=== PATIENT | female | born 1960 | race Caucasian/White ===

== ENCOUNTER 2019-01-23 12:59 | Emergency (ER) | payer BC, OTHER ==
[2019-01-23 13:46] VITALS: BP 148/85
--- NOTE | 2019-01-23 15:35 | UC ---
Hand/Wrist HPI - HPI Summary HPI Summary: 58 yo female fell at work c/o left wrist pain occurred this AM she is right handed declines analgesic here - History Of Current Complaint Chief Complaint: UCUpperExtremity Stated Complaint: ARM INJURY Time Seen by Provider: 01/23/19 14:50 Hx Obtained From: Patient Onset/Duration: Sudden Onset, Gradual Onset, Lasting Minutes Severity Initially: Severe Severity Currently: Severe Pain Intensity: 8 Pain Scale Used: 0-10 Numeric Character Of Pain: Aching Aggravating Factor(s): Movement Alleviating Factor(s): Rest Associated Signs And Symptoms: Positive: Swelling Related History: Occupational Injury, Dominant Hand Right Hands: 1 - tender and swollen - Allergies/Home Medications Allergies/Adverse Reactions: Allergies Allergy/AdvReac Type Severity Reaction Status Date / Time cefaclor [From Ceclor] Allergy Hives Verified 01/23/19 13:47 PMH/Surg Hx/FS Hx/Imm Hx Previously Healthy: Yes Endocrine History: Dyslipidemia Cardiovascular History: Hypertension - Surgical History Surgical History: Yes Surgery Procedure, Year, and Place: T&A. 2 c section. [place]. knee surgery. 2 lumpectomy- benign - Family History Known Family History: Positive: Hypertension - Social History Alcohol Use: None Substance Use Type: None Smoking Status (MU): Never Smoked Tobacco - Immunization History Most Recent Influenza Vaccination: 2012 Review of Systems All Other Systems Reviewed And Are Negative: Yes Constitutional: Positive: Negative Skin: Positive: Negative Eyes: Positive: Negative ENT: Positive: Negative Respiratory: Positive: Negative Cardiovascular: Positive: Negative Gastrointestinal: Positive: Negative Genitourinary: Positive: Negative Motor: Positive: Negative Neurovascular: Positive: Negative Musculoskeletal: Positive: Arthralgia - left wrist Neurological: Positive: Negative Psychological: Positive: Negative Physical Exam Triage Information Reviewed: Yes Appearance: Well-Appearing, No Pain Distress, Well-Nourished Vital Signs: Initial Vital Signs Temp 99 F 01/23/19 13:41 Pulse 100 01/23/19 13:41 Resp 20 01/23/19 13:41 BP 148/85 01/23/19 13:41 Pulse Ox 100 01/23/19 13:41 Vital Signs Reviewed: Yes Eyes: Positive: Conjunctiva Clear ENT: Positive: Hearing grossly normal, Uvula midline. Negative: Nasal congestion, Nasal drainage, Tonsillar swelling, Tonsillar exudate, Hoarse voice Neck: Positive: Supple, Nontender, No Lymphadenopathy Respiratory: Positive: Lungs clear, Normal breath sounds, No respiratory distress, No accessory muscle use Cardiovascular: Positive: RRR, No Murmur, Pulses Normal Abdomen Description: Positive: Nontender, No Organomegaly Bowel Sounds: Positive: Present Musculoskeletal: Positive: Strength Intact, ROM Intact Neurological: Positive: Alert Psychological Exam: Normal Skin Exam: Normal Diagnostics - Radiology No standard instances Radiology Interpretation Completed By: Radiologist Summary of Radiographic Findings: left wrist:. Subtle radial margin cortical contour and trabecular irregularity at the radial styloid is suspicious for a subtle impaction fracture given the clinical context. No suggestion of additional fracture. #. Normal articular alignment. #. 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 #. Diffuse soft tissue swelling Hand/Wrist Course/Dx - Differential Dx/Diagnosis Provider Diagnosis: Nondisplaced fracture of distal end of left radius Discharge ED - Sign-Out/Discharge Documenting (check all that apply): Patient Departure All imaging exams completed and their final reports reviewed: Yes - Discharge Plan Condition: Stable Disposition: HOME Patient Education Materials: Wrist Fracture in Adults (ED) Referrals: Nj Roa MD [Medical Doctor] - As Soon As Possible Additional Instructions: splint elevate ice advil or aleve - Billing Disposition and Condition Condition: STABLE Disposition: Home
== END 2019-01-23 16:03 | disposition home or self-care (01) ==
LOC: UCEAST 12:59
DX: S52.502A Unspecified fracture of the lower end of left radius, initial encounter for closed fracture (principal); W18.30XA Fall on same level, unspecified, initial encounter; Y92.89 Other specified places as the place of occurrence of the external cause; E78.5 Hyperlipidemia, unspecified; I10 Essential (primary) hypertension
CPT/HCPCS: 99202; G0463

== ENCOUNTER 2019-12-14 12:08 | Inpatient (IN) ==
[2019-12-14 14:00] LABS: Hematocrit 45 % (35-47); Hemoglobin 15.6 g/dL (12.0-16.0); Mean Corpuscular HGB Conc 34 g/dL (31-36); Mean Corpuscular Hemoglobin 31 pg (27-31); Mean Corpuscular Volume 89 fL (80-97); Mean Platelet Volume 10.6 fL (7.4-10.4); Platelet Count 239 10^3/uL (150-450); Red Blood Count 5.07 10^6 /uL (3.70-4.87); Red Cell Distribution Width 14 % (10-15); White Blood Count 7.5 10^3/uL (3.5-10.8)
[2019-12-14 14:02] LABS: Urine Appearance Clear; Urine Bilirubin Negative (Negative); Urine Blood Negative (Negative); Urine Color Straw; Urine Glucose Negative (Negative); Urine Ketones Negative (Negative); Urine Nitrite Negative (Negative); Urine Protein Negative (Negative); Urine Specific Gravity 1.006 (1.010-1.030); Urine Urobilinogen Negative (Negative)
[2019-12-14] MEDS ORDERED: cefTRIAXone 1 gm/50 mL NS BAG 1 GM/50 ML BAG IV ONE (14:13)
[2019-12-14] MEDS ORDERED: Azithromycin 500 mg/250 ml NS 500 MG/250 ML BAG IVPB ONE (14:13)
[2019-12-14 14:16] LABS: Albumin 3.8 g/dL (3.2-5.2); Albumin/Globulin Ratio 1.1 (1-3); BUN/Creatinine Ratio 28.4 (8-20); Calcium 9.5 mg/dL (8.6-10.3); EGFR African American 48.7 (>60); EGFR Non-African American 40.2 (>60); Globulin 3.6 g/dL (2-4); Potassium 3.2 mmol/L (3.5-5.0); Total Bilirubin 0.4 mg/dL (0.2-1.0); Total Protein 7.4 g/dL (6.4-8.9)
[2019-12-14 14:17] LABS: Troponin I 0.01 ng/mL (<0.03)
[2019-12-14 14:58] LABS: TSH Ultra Thyroid Stim Horm 0.42 mcIU/mL (0.34-5.60)
[2019-12-14 15:16] LABS: ABS Basophils 0.1 10^3/ul (0-0.2); ABS Eosinophils 0.1 10^3/ul (0-0.6); ABS Lymphocytes 1.9 10^3/ul (1.0-4.8); ABS Monocytes 0.5 10^3/ul (0-0.8); ABS Neutrophils 4.8 10^3/ul (1.5-7.7); Lymphocyte % 25.8 %
[2019-12-14 15:27] LABS: C Reactive Protein 58.69 mg/L (<8.01)
[2019-12-14 15:37] LABS: Ferritin 230.9 ng/mL (11-307)
[2019-12-14] MEDS: Enoxaparin 60 MG/0.6 ML SYR SUBCUT SCH (15:42)
[2019-12-14] MEDS ORDERED: Remdesivir 5 MG/ML LIQ IV Vial 200 MG in NS 0.9% 250 ml 210 ML IV ONE (16:10)
[2019-12-14] MEDS ORDERED: Albuterol HFA INHALER 8 gm MDI INH PRN (16:28)
[2019-12-14] MEDS: NS 0.9% w/ 20 Meq KCL 1000 ml 1,000 ML IV SCH (18:26)
[2019-12-14 18:44] LABS: Erythrocyte Sed Rate 55 mm/Hr (0-29)
[2019-12-14] MEDS: Mometasone/Formoter 200/5 MDI INH SCH (22:40)
[2019-12-15] MEDS: Enoxaparin 60 MG/0.6 ML SYR SUBCUT SCH ×2 (02:04→16:14)
[2019-12-15] MEDS: Venlafaxine XR 75 mg PO SCH (09:08)
[2019-12-15] MEDS: Mometasone/Formoter 200/5 MDI INH SCH ×2 (09:21→21:28)
[2019-12-15] MEDS: NS 0.9% w/ 20 Meq KCL 1000 ml 1,000 ML IV SCH ×2 (09:28→20:52)
[2019-12-15 10:07] LABS: Hematocrit 42 % (35-47); Hemoglobin 13.9 g/dL (12.0-16.0); Mean Corpuscular HGB Conc 34 g/dL (31-36); Mean Corpuscular Hemoglobin 30 pg (27-31); Mean Corpuscular Volume 90 fL (80-97); Mean Platelet Volume 10.4 fL (7.4-10.4); Platelet Count 239 10^3/uL (150-450); Red Blood Count 4.65 10^6 /uL (3.70-4.87); Red Cell Distribution Width 14 % (10-15); White Blood Count 8.3 10^3/uL (3.5-10.8)
[2019-12-15 10:14] LABS: Activated Partial Thrombo Time 31.5 seconds (26.0-38.0); INR 1.1 (0.82-1.09)
[2019-12-15 10:15] LABS: BUN/Creatinine Ratio 25.2 (8-20); C Reactive Protein 26.11 mg/L (<8.01); Calcium 8.6 mg/dL (8.6-10.3); EGFR African American 51.8 (>60); EGFR Non-African American 42.8 (>60); Potassium 3.8 mmol/L (3.5-5.0)
[2019-12-15 11:28] LABS: ABS Basophils 0.1 10^3/ul (0-0.2); ABS Eosinophils 0.2 10^3/ul (0-0.6); ABS Lymphocytes 2.2 10^3/ul (1.0-4.8); ABS Monocytes 0.6 10^3/ul (0-0.8); ABS Neutrophils 5.2 10^3/ul (1.5-7.7); Eosinophil % 2.3 %; Nucleated Red Blood Cells % 0.1
[2019-12-15] MEDS ORDERED: Remdesivir 5 MG/ML LIQ IV Vial 100 MG in NS 0.9% 250 ml 230 ML IV SCH (16:00)
[2019-12-16] MEDS: Enoxaparin 60 MG/0.6 ML SYR SUBCUT SCH ×2 (04:26→15:01)
[2019-12-16] MEDS: Venlafaxine XR 75 mg PO SCH (07:24)
[2019-12-16] MEDS: Mometasone/Formoter 200/5 MDI INH SCH (07:25)
[2019-12-16] MEDS: NS 0.9% w/ 20 Meq KCL 1000 ml 1,000 ML IV SCH (07:27)
[2019-12-16 09:10] LABS: Hematocrit 37 % (35-47); Hemoglobin 12.6 g/dL (12.0-16.0); Mean Corpuscular HGB Conc 34 g/dL (31-36); Mean Corpuscular Hemoglobin 30 pg (27-31); Mean Corpuscular Volume 90 fL (80-97); Mean Platelet Volume 10.2 fL (7.4-10.4); Platelet Count 210 10^3/uL (150-450); Red Blood Count 4.17 10^6 /uL (3.70-4.87); Red Cell Distribution Width 14 % (10-15); White Blood Count 7.6 10^3/uL (3.5-10.8)
[2019-12-16 09:21] LABS: Albumin 3.1 g/dL (3.2-5.2); Albumin/Globulin Ratio 1.1 (1-3); EGFR African American 53.2 (>60); Globulin 2.9 g/dL (2-4); Magnesium 1.8 mg/dL (1.9-2.7); Potassium 3.8 mmol/L (3.5-5.0); Total Bilirubin 0.3 mg/dL (0.2-1.0)
[2019-12-16 10:09] LABS: ABS Basophils 0.1 10^3/ul (0-0.2); ABS Eosinophils 0.2 10^3/ul (0-0.6); ABS Lymphocytes 2.3 10^3/ul (1.0-4.8); ABS Monocytes 0.6 10^3/ul (0-0.8); ABS Neutrophils 4.5 10^3/ul (1.5-7.7); Eosinophil % 2.7 %; Lymphocyte % 29.8 %; Nucleated Red Blood Cells % 0.1
[2019-12-16 15:59] VITALS: BP 152/62
== END 2019-12-16 17:15 | disposition home or self-care (01) ==
LOC: ED 12:08 → MED 14:49
PROVIDERS: ADMIT Internal Medicine; ATTEND Internal Medicine